=== PATIENT | female | born 1965 | race African-American/Black ===

== ENCOUNTER 2016-08-21 16:38 | Inpatient (IN) | payer MEDICARE, OTHER ==
--- NOTE | ~2016-08-21 | PN ---
Unit #: [id number] #: [id number] Patient: KATERIN FOX [id number] [facility] [address] [place] [address] [id number] MR#: [id number] NAME: KATERIN FOX ROOM: [facility] Age: 51 Sex: F Admission Date: 08/21/2016 : 1965 Attending Physician: Suresh Green M.D. Admitting Physician: Suresh Green M.D. Primary Care Physician: Primary Care Physician Anay BOSWELL NOTES DATE OF SERVICE: 08/24/2016 SUBJECTIVE Ms. Fox is a 51-year-old female, who was seen today and chart was reviewed and the case was discussed with the staff. She remains depressed, anxious, and withdrawn and reports not feeling good and that she needs help and that she has been having suicidal ideations and auditory hallucinations. Meanwhile, she has been taking the medications and tolerating them fairly well, though has not shown a therapeutic response. MENTAL STATUS EXAMINATION Middle-aged female, who was casually dressed with fair personal hygiene, appears to be in no acute distress or discomfort. She was awake and alert with impaired attention and concentration. Her mood was anxious with a congruent affect. She denies any suicidal or homicidal ideation. Her insight and judgment remain slightly impaired. TREATMENT PLAN 1. We will continue her on her current treatment protocol. We will monitor her response and make further adjustments as needed. 2. We will continue to follow up. Dictated by... Raz Johnson/rita TD: 08/25/2016 18:12 JOB #: [id number] [facility] PROGRESS NOTES Page 1 of 1 X Suresh Green MD X PROGRESS NOTE
--- NOTE | ~2016-08-21 | PN ---
Unit #: [id number] #: [id number] Patient: KATERIN FOX [id number] [facility] [address] [place] [address] [id number] MR#: [id number] NAME: KATERIN FOX ROOM: [facility] Age: 51 Sex: F Admission Date: 08/21/2016 : 1965 Attending Physician: Suresh Green M.D. Admitting Physician: Suresh Green M.D. Primary Care Physician: Primary Care Physician Anay REZA PROGRESS NOTES DATE August 31, 2016 DISCUSSION Ms. Fox is a 51-year-old female, who was seen today and chart was reviewed and the case was discussed with the staff. She appears to be doing much better and has been calm and cooperative with the treatment recommendations. She has been compliant with the treatment recommendations and some improvement in her depressive symptoms. She has been taking the medications and tolerating them fairly well. MENTAL STATUS EXAMINATION Middle-aged female, who was casually dressed with fair personal hygiene and appears to be in no acute distress or discomfort. She was awake and alert on interaction with intact orientation. Her mood is anxious and depressed with a congruent affect. The patient denies any suicidal or homicidal ideations. Her insight and judgment remain slightly impaired. TREATMENT PLAN 1. We will continue her on her current treatment protocol, and will monitor her response to the medications, and make further adjustments as needed. 2. We will continue to followup. Dictated by... Raz Johnson/yeni TD: 09/01/2016 10:38 JOB #: [id number] Unit #: [id number] #: [id number] Patient: KATERIN FOX PROGRESS NOTES Page 1 of 1 X Suresh Green MD PROGRESS NOTE
--- NOTE | ~2016-08-21 | PN ---
Unit #: [id number] #: [id number] Patient: KATERIN FOX [id number] [facility] [address] [place] [address] [id number] MR#: [id number] NAME: KATERIN FOX ROOM: [facility] Age: 51 Sex: F Admission Date: 08/21/2016 : 1965 Attending Physician: Suresh Green M.D. Admitting Physician: Suresh Green M.D. Primary Care Physician: Primary Care Physician Anay BOSWELL NOTES DATE August 23, 2016 DISCUSSION Ms. Fox is a 51-year-old female, who was seen today and chart was reviewed and the case was discussed with the staff. She has been anxious, withdrawn, and has been reporting persistent depression and anxiety, auditory hallucinations and suicidal ideations, and as such has been given some p.r.n. medications. MENTAL STATUS EXAMINATION Middle-aged female, who was casually dressed with fair personal hygiene and appears to be in no acute distress or discomfort. The patient was awake and alert on interaction with intact orientation. Her mood was anxious with a congruent affect. She reports having suicidal ideations and auditory hallucinations. Her insight and judgment remain slightly impaired. TREATMENT PLAN 1. We will continue her on her current medications and precautions, and will start p.r.n. Zyprexa. 2. We will continue to followup. Dictated by... Raz Johnson/yeni TD: 08/25/2016 05:13 JOB #: [id number] Unit #: [id number] #: [id number] Patient: KATERIN FOX PROGRESS NOTES Page 1 of 1 X Suresh Green MD PROGRESS NOTE
--- NOTE | ~2016-08-21 | PN ---
Unit #: [id number] #: [id number] Patient: KATERIN FOX [id number] [facility] [address] [place] [address] [id number] I MR#: [id number] NAME: KATERIN FOX ROOM: [facility] Age: 51 Sex: F Admission Date: 08/21/2016 : 1965 Attending Physician: Suresh Green M.D. Admitting Physician: Suresh Green M.D. Primary Care Physician: Primary Care Physician Anay BOSWELL NOTES DATE 08/27/2016 DISCUSSION Ms. Fox is a 51-year-old female who was seen today and chart was reviewed and case was discussed with the staff. She has been anxious, withdrawn and rather seclusive to herself. Meanwhile, she has been cooperative with treatment recommendations. She has been taking the medications and tolerating them fairly well with no reported side effects. MENTAL STATUS EXAMINATION Middle-aged female who was casually dressed with fair personal hygiene, appears to be in no acute distress or discomfort. She was awake and alert on interaction with intact orientation. Her mood was anxious with congruent affect. She denies any suicidal or homicidal ideations. Also, denies any auditory or visual hallucinations. Her insight and judgement remains slightly impaired. TREATMENT PLAN 1. We will continue her on her current medications and treatment protocol. We will monitor her response and make further adjustments as needed. 2. We will continue to follow up. Dictated by... Raz Johnson/geovany TD: 08/28/2016 01:45 JOB #: [id number] Unit #: [id number] #: [id number] Patient: KATERIN FOX PROGRESS NOTES Page 1 of 1 X Suresh Green MD PROGRESS NOTE
--- NOTE | ~2016-08-21 | PN ---
Unit #: [id number] #: [id number] Patient: KATERIN FOX [id number] [facility] [address] [place] [address] [id number] I MR#: [id number] NAME: KATERIN FOX ROOM: [facility] Age: 51 Sex: F Admission Date: 08/21/2016 : 1965 Attending Physician: Suresh Green M.D. Admitting Physician: Suresh Green M.D. Primary Care Physician: Primary Care Physician Anay REZA PROGRESS NOTES DATE OF SERVICE: 08/25/2016 SUBJECTIVE Ms. Fox is a 51-year-old female, who was seen today and chart was reviewed and case was discussed with the staff. She has been anxious, withdrawn, depressed, and seclusive to herself. She reports persistent anxiety and depressive symptoms and feelings of hopelessness and suicidal ideation. Meanwhile, she has been taking medications including Risperdal which was just initiated yesterday and has been tolerating this. MENTAL STATUS EXAMINATION Middle-aged female who was casually dressed with fair personal hygiene and appears to be in no acute distress or discomfort. She was awake and alert with impaired attention and concentration. Her mood was anxious with a congruent affect. She denies suicidal or homicidal ideations. Her insight and judgment remain slightly impaired. TREATMENT PLAN We will continue on her current treatment protocol. We will monitor her response to medications and make further adjustments as needed. Dictated by... Raz Johnson/rita TD: 08/26/2016 07:31 JOB #: [id number] [facility] PROGRESS NOTES Page 1 of 1 X Suresh Green MD PROGRESS NOTE
--- NOTE | ~2016-08-21 | CO ---
Unit #: [id number] #: [id number] Patient: ILENE VILLEDA [id number] [place] [address] [id number] I MR#: [id number] NAME: ILENE VILLEDA ROOM: [facility]5 Age: 51 Sex: F Admission Date: 08/21/2016 : 1965 Attending Physician: Suresh Green M.D. Primary Care Physician: Primary Care Physician No Consultation Date: 08/22/2016 CONSULTATION REPORT Ilene is a 51-year-old with diabetes mellitus, type 2, insulin-dependent. We were asked to review her insulins and blood sugars. These were reviewed and appropriate orders were written. Please see MAR and nursing notes and doctor's orders for details. Dictated by... Iveth Durant P.A.-C. for Raz Parra/rita TD: 09/03/2016 23:13 JOB #: [id number] CONSULTATION REPORT Page 1 of 1 X Iveth Durant CONSULTATION REPORT
--- NOTE | ~2016-08-21 | HP ---
Unit #: [id number] #: [id number] Patient: ILENE VILLEDA [id number] [place] [address] [id number] I MR#: [id number] NAME: ILENE VILLEDA ROOM: P255 Age: 51 Sex: F Admission Date: 08/21/2016 : 1965 Attending Physician: Suresh Green M.D. Admitting Physician: Suresh Green M.D. Primary Care Physician: Primary Care Physician No HISTORY AND PHYSICAL HISTORY OF PRESENT ILLNESS Ilene is a 51 year old admitted to [address] [place] [address] with depression and verbalizing wanting to hurt herself. PAST MEDICAL HISTORY 1. Diabetes mellitus, insulin-dependent. 2. Hyperlipidemia. 3. GERD. 4. Coronary artery disease. a. Angioplasty with stents. b. Three vessel CABG, 01/2016. PAST SURGICAL HISTORY As above. ALLERGIES Sulfa, Tylenol, hydrocodone. SOCIAL HISTORY Smokes 1/2 pack per day. Drinks alcohol on occasion. Admits to smoking marijuana daily and cocaine frequently. FAMILY HISTORY Medically noncontributory. REVIEW OF SYSTEMS CONSTITUTIONAL: No fever or chills. HEENT: Denies any sore throat, ear pain or runny nose. CARDIOVASCULAR: Denies chest pain, irregular heart rhythm or palpitations. CHEST: Denies shortness of breath or cough. No hemoptysis. GASTROINTESTINAL: Denies nausea, vomiting, diarrhea or chronic constipation. ENDOCRINE: Denies history of increased thirst or urination. No recent significant weight loss or gain. GENITOURINARY: Denies dysuria, frequency, or hematuria. SKIN: Denies any rashes. HEMATOLOGIC: Denies history of increased bleeding or bruising. MUSCULOSKELETAL: Denies any hot, swollen joints. No generalized muscle pain. NEUROLOGIC: Denies problems with vision or speech. No frequent, severe headaches. No numbness, tingling or weakness in any extremities. Denies loss of bladder or bowel control. Unit #: [id number] #: [id number] Patient: ILENE VILLEDA CURRENT MEDICATIONS 1. Lexapro 20 mg q.a.m. 2. Lipitor 80 mg q.h.s. 3. NovoLog per sliding scale. 4. Protonix 40 mg b.i.d. 5. Levemir 25 units b.i.d. 6. Hydralazine 25 mg t.i.d. 7. Neurontin 900 mg t.i.d. 8. Plavix 75 mg daily. 9. Coreg 12.5 mg b.i.d. 10. Bumex 1 mg b.i.d. 11. Aspirin 81 mg daily. 12. Milk of Magnesia p.r.n. 13. Maalox p.r.n. PHYSICAL EXAMINATION GENERAL: Alert, thin, no apparent distress. VITAL SIGNS: Blood pressure 142/98, heart rate 80, respirations 16, temperature 98.6. WEIGHT: 180. HEIGHT: 5 feet 6 inches. SKIN: Warm and dry without rash or lesion. HEENT: Normocephalic. TMs not viewed. Oral and nasal passages clear. Conjunctivae clear. PERRLA. EOMs intact. NECK: Supple without lymphadenopathy or thyromegaly. HEART: Regular rate and rhythm without murmur. LUNGS: Clear. ABDOMEN: Soft, nontender. : Not done. EXTREMITIES: No evidence of cyanosis, clubbing or edema. Moves all without focal deficit. NEUROLOGICAL: Grossly within normal limits. Cranial Nerves: II: Visual snow are intact. III, IV AND : Extraocular movements are intact. Pupils are equal, round and reactive to light. V: Facial sensation is grossly normal. VII: Facial movements and expression are normal. VIII: Auditory acuity grossly intact. IX, X: Uvula is midline. Phonation is normal. XI: Patient shrugs shoulders and turns head normally. XII: Tongue protrudes in the midline. Sensory and Motor Function: Sensory and motor sensation is grossly normal. Motor: moves all extremities well. Coordination: Gait is normal. Deep Tendon Reflexes: Intact. IMPRESSION Psychiatric admission. RECOMMENDATIONS PSYCHIATRIC: Per psychiatrist. MEDICAL: See no contraindications to participate in facility's activities. MEDICAL PROGNOSIS Good. MEDICAL CONDITION Stable. Unit #: [id number] #: [id number] Patient: ILENE VILLEDA Dictated by... Iveth Durant P.A.-C. for Raz Parra/dong TD: 08/22/2016 20:07 JOB #: [id number] HISTORY AND PHYSICAL Page 1 of 1 X Iveth Durant X HISTORY AND PHYSICAL
--- NOTE | ~2016-08-21 | DS ---
Unit #: [id number] #: [id number] Patient: KATERIN FOX [id number] [facility] [address] [place] [address] [id number] MR#: [id number] NAME: KATERIN FOX ROOM: P255 Age: 51 Sex: F Admission Date: 08/21/2016 : 1965 Discharge Date: Attending Physician: Suresh Green M.D. DISCHARGE SUMMARY IDENTIFYING DATA Ms. Fox is a 51-year-old female, who is a resident of [place], [place], and was transferred to us from [facility] Emergency Room. DISCHARGE DIAGNOSES Psychiatric: Major depressive disorder, recurrent, moderate, without psychotic features. Medical: Coronary artery disease, diabetes mellitus, status post coronary artery bypass grafting. Stressors: Moderate psychosocial stressors. HISTORY OF PRESENT ILLNESS Please see initial psychiatric evaluation for details. PAST PSYCHIATRIC HISTORY Please see initial psychiatric evaluation for details. PAST MEDICAL HISTORY Please see initial psychiatric evaluation for details. HOSPITAL COURSE The patient [facility] and was oriented to the hospital environment. Routine p.r.n. medications were initiated, and she was started back on her home medications and medications were adjusted and she was closely monitored. She was taking the medications regularly and was tolerating them fairly well and was seen to be exhibiting some persistent depression and anxiety and as such, Risperdal was initiated and then titrated with good tolerability and therapeutic response. Followed by which, it was decided that she will be discharged home and will continue treatment on an outpatient basis. DISCHARGE MEDICATIONS Lexapro 20 mg a day for depression and Risperdal 1 mg b.i.d. DISCHARGE CONDITION Stable. PROGNOSIS Fair. Dictated by... Unit #: [id number] #: [id number] Patient: KATERIN FOX Suresh Green M.D. IAA/modl TD: 09/01/2016 07:08 JOB #: [id number] DISCHARGE SUMMARY Page 1 of 1 X Suresh Green MD X DISCHARGE SUMMARY
--- NOTE | ~2016-08-21 | PA ---
Unit #: [id number] #: [id number] Patient: KATERIN FOX [id number] [facility] [address] [place] [address] [id number] I MR#: [id number] NAME: KATERIN FOX ROOM: P255 Age: 51 Sex: F Admission Date: 08/21/2016 : 1965 Date of Assessment: 08/22/2016 Attending Physician: Suresh Green M.D. Admitting Physician: Suresh Green M.D. Primary Care Physician: Primary Care Physician No PSYCHIATRIC ASSESSMENT IDENTIFYING DATA Ms. Fox is a 51-year-old single female, who is a resident of [place], [place], and was self-referred to the hospital as a transfer from [facility] Emergency Room. CHIEF COMPLAINT "I'm struggling with depression". HISTORY OF PRESENT ILLNESS Ms. Fox is a 51-year-old female, who reports that she had a triple bypass in January and that she has been struggling with being depressed ever since and reports that she has been sitting at home, crying for the past two months. She reported that Day was especially hard for her due to her parents and grandparents, both having and that she misses them and feels all alone. She reported that she is also concerned about her 25 year old son because he is on heroin and finding dates on [employer] and she is concerned that he will end up and reports that her overall home situation is overwhelming and reports falling in areas of her home and that she has no hot water and reports that her house has bedbugs and ants, and she is unable to keep it clean even when she tries and reports that she has boyfriend, who lives with her, that he is usually supportive but when he starts drinking, he will do things such as stealing a debit card and finances are struggle for her. The patient reports that she has not smoked crack cocaine in 2 or 3 years and due to feeling overwhelmed, she ended up smoking which made everything seem worse. She reports that she is frustrated with herself and doing so that she wishes "we would just let her go." She stated that she feels things will be better if she would be in heaven with her family members there as "there will be no suffering." She does report increasing depression, anxiety, irritability, restlessness, feelings of hopelessness and helplessness, and suicidal ideations, and as such, recommendation for inpatient level of care for safety and stabilization was made, and the patient was transferred to us. SUBSTANCE ABUSE HISTORY The patient reports history of alcohol, cannabis, and cocaine abuse and reports that she has been smoking cannabis quite regularly and ended up relapsing on cocaine yesterday as well. PAST PSYCHIATRIC HISTORY The patient has not had any prior inpatient psychiatric hospitalization and currently, she does not appear to be actively involved in any treatment program. Unit #: [id number] #: [id number] Patient: KATERIN FOX PAST MEDICAL HISTORY The patient's medical history is significant for coronary artery disease, status post coronary artery bypass grafting and diabetes mellitus. ALLERGIES Tylenol, [place] and sulfa. PERSONAL AND SOCIAL HISTORY A 51-year-old female, who reports that she is single and lives at home and her boyfriend stays with her some time and she is unemployed and has poor social support system. MENTAL STATUS EXAMINATION Middle-aged female, who was casually dressed with fair personal hygiene, appears to be in no acute distress or discomfort. She was awake and alert on interaction with intact orientation to time, place, and person. Her mood was anxious and depressed with a congruent affect. Her speech was slow and restricted in content. The patient reports having suicidal ideations, but denies any homicidal ideations, and also denies any auditory or visual hallucinations. Her insight and judgment remain significantly impaired. DIAGNOSTIC IMPRESSION Psychiatric: Major depressive disorder, recurrent, moderate, without psychotic features. Medical: Coronary artery disease, diabetes mellitus, status post coronary artery bypass grafting. Stressors: Moderate psychosocial stressors. TREATMENT PLAN 1. The patient has presented with history of mood disorder and substance abuse and has been decompensating and will need inpatient hospitalization for safety and stabilization. We will start her back on her home medications. We will adjust the medications and monitor response. 2. Supportive therapy was provided to the patient. 3. Safe, structured, and nourishing environment will be provided. ESTIMATED LENGTH OF STAY 5 to 7 days. ABILITY TO HELP SELF Limited. WILLINGNESS TO HELP SELF The patient appears to be willing to help self. STRENGTHS 1. Communicative. 2. Cooperative. PROBLEMS 1. Chronic dysphoric symptoms. 2. Chronic chemical dependency. 3. Poor social support system. DISCHARGE CRITERIA This will be contingent upon the patient's ability to show resolution of her depression and anxiety and her ability to stay safe to himself, Unit #: [id number] #: [id number] Patient: KATERIN FOX particularly after discharge from the hospital. Dictated by... Raz Johnson/rita TD: 08/22/2016 07:14 JOB #: [id number] PSYCHIATRIC ASSESSMENT Page 1 of 1 X Suresh Green MD X PSYCHIATRIC ASSESSMENT
--- NOTE | ~2016-08-21 | PN ---
Unit #: [id number] #: [id number] Patient: KATERIN FOX [id number] [facility] [address] [place] [address] [id number] I MR#: [id number] NAME: KATERIN FOX ROOM: [facility] Age: 51 Sex: F Admission Date: 08/21/2016 : 1965 Attending Physician: Suresh Green M.D. Admitting Physician: Suresh Green M.D. Primary Care Physician: Primary Care Physician Anay BOSWELL NOTES DATE 08/28/2016 DISCUSSION Ms. Fox is a 51-year-old female who was seen today and chart was reviewed and case was discussed with the staff. She has been anxious, withdrawn, rather seclusive to herself. Meanwhile, she has been cooperative with treatment recommendations and has been taking medications and tolerating them fairly well with no reported side effects. MENTAL STATUS EXAMINATION Middle-aged female who was casually dressed with fair personal hygiene and appears to be in no acute distress or discomfort. She was awake and alert on interaction with intact orientation. Her mood was anxious with congruent affect. She denies any suicidal or homicidal ideation. Her insight and judgement remains slightly impaired. TREATMENT PLAN 1. Will continue on current treatment protocol and will monitor her response to the medications and make ____ as needed. 2. Will continue to follow up. Dictated by... Suresh Green M.D. IAA/dong TD: 08/28/2016 22:56 JOB #: [id number] Unit #: [id number] #: [id number] Patient: KATERIN FOX PROGRESS NOTES Page 1 of 1 X Suresh Green MD PROGRESS NOTE
--- NOTE | ~2016-08-21 | PN ---
Unit #: [id number] #: [id number] Patient: KATERIN FOX [id number] [facility] [address] [place] [address] [id number] MR#: [id number] NAME: KATERIN FOX ROOM: [facility] Age: 51 Sex: F Admission Date: 08/21/2016 : 1965 Attending Physician: Suresh Green M.D. Admitting Physician: Suresh Green M.D. Primary Care Physician: Primary Care Physician Anay BOSWELL NOTES DATE 08/26/2016 DISCUSSION Ms. Fox is a 51-year-old female who was seen today and chart was reviewed and case was discussed with the staff. She has been anxious, withdrawn though has not shown any agitation, irritability and has been showing some improvement in her mood and daily functioning as she has been taking the medications and tolerating them fairly well with no reported side effects. MENTAL STATUS EXAMINATION Middle-aged female who was casually dressed with fair personal hygiene, appears to be in no acute distress or discomfort. She was awake and alert on interaction with intact orientation. Her mood was anxious with congruent affect. She denies any suicidal or homicidal ideations. Also, denies any auditory or visual hallucinations. Her insight and judgement remains slightly impaired. TREATMENT PLAN 1. We will continue her on her current medications and treatment protocol. We will monitor her response and make further adjustments as needed. 2. We will continue to follow up. Dictated by... Raz Johnson/geovany TD: 08/27/2016 03:57 JOB #: [id number] Unit #: [id number] #: [id number] Patient: KATERIN FOX PROGRESS NOTES Page 1 of 1 X Suresh Green MD PROGRESS NOTE
--- NOTE | ~2016-08-21 | PN ---
Unit #: [id number] #: [id number] Patient: KATERIN FOX [id number] [facility] [address] [place] [address] [id number] MR#: [id number] NAME: KATERIN FXO ROOM: [facility] Age: 51 Sex: F Admission Date: 08/21/2016 : 1965 Attending Physician: Suresh Green M.D. Admitting Physician: Suresh Green M.D. Primary Care Physician: Primary Care Physician Anay BOSWELL NOTES DATE OF SERVICE: 08/30/2016 SUBJECTIVE Ms. Fox is a 51-year-old female, who was seen today and chart was reviewed and case was discussed with the staff. She has been anxious, withdrawn, and rather seclusive to herself. The patient has been cooperative with treatment recommendations. Meanwhile, she has been taking medications with no reported side effects. MENTAL STATUS EXAMINATION Middle-aged female, who was casually dressed with fair personal hygiene, appears to be in no acute distress or discomfort. She was awake and alert with impaired attention and concentration. Her mood was anxious with a congruent affect. She denies any suicidal or homicidal ideation. Her insight and judgment remain slightly impaired. TREATMENT PLAN 1. We will and will monitor her response to the medications and make further adjustments as needed. 2. We will continue to follow up. Dictated by... Raz Johnson/rita TD: 09/01/2016 09:57 JOB #: [id number] [facility] PROGRESS NOTES Page 1 of 1 X Suresh Green MD X PROGRESS NOTE
--- NOTE | ~2016-08-21 | PN ---
Unit #: [id number] #: [id number] Patient: KATERIN FOX [id number] [facility] [address] [place] [address] [id number] MR#: [id number] NAME: KATERIN FOX ROOM: [facility] Age: 51 Sex: F Admission Date: 08/21/2016 : 1965 Attending Physician: Suresh Green M.D. Admitting Physician: Suresh Green M.D. Primary Care Physician: Primary Care Physician Anay BOSWELL NOTES DATE 08/29/2016 DISCUSSION Ms. Fox is a 51-year-old female who was seen today and chart was reviewed and case was discussed with the staff. She has been anxious, withdrawn and reports mood swings, irritability, anxiety and panic mode as well as feelings of hopelessness and helplessness and suicidal ideation and some auditory hallucinations though she has been taking medications, she has not been able to show a therapeutic response. MENTAL STATUS EXAMINATION Middle-aged female who was casually dressed with fair personal hygiene and appears to be in no acute distress or discomfort. She was awake and alert with impaired attention and concentration. Her mood was anxious with congruent affect. She denies any suicidal or homicidal ideation. Her insight and judgement slightly impaired. TREATMENT PLAN 1. Will monitor her response to medications and make further adjustments as needed. 2. Will continue to follow up. Dictated by... Raz Johnson/dong TD: 08/29/2016 22:25 JOB #: [id number] Unit #: [id number] #: [id number] Patient: KATERIN FOX PROGRESS NOTES Page 1 of 1 X Suresh Green MD PROGRESS NOTE
--- NOTE | ~2016-08-21 | CO ---
Unit #: [id number] #: [id number] Patient: KATERIN VILLEDA [id number] [facility] [address] [place] [address] [id number] MR#: [id number] NAME: KATERIN VILLEDA ROOM: [facility] Age: 51 Sex: F Admission Date: 08/21/2016 : 1965 Attending Physician: Suresh Green M.D. Primary Care Physician: Primary Care Physician No Consultation Date: 08/23/2016 CONSULTATION REPORT ORDERING PROVIDER Dr. Green. REASON FOR CONSULT Diabetes, to review sliding scale insulin. SUBJECTIVE The patient reports that she is not always compliant with medications at home; however, her regimen is supposed to be Levemir 25 units b.i.d. and NovoLog sliding scale with meals. This pattern has been continued on admission and the patient reports that she thinks everything is going well. OBJECTIVE The patient's blood sugars have ranged between 138 and a high of 481, which was on admission. It is unclear if she had taken her insulin prior to that due to noncompliance; however, since admission her highest blood sugar was 352. ASSESSMENT Diabetes. PLAN Plan is to continue the patient on her current medications of Levemir 25 units b.i.d. and NovoLog sliding scale with meals. Dictated by... Merari Luevano A.P.R.N. for Raz Parra/rita TD: 08/25/2016 00:43 JOB #: [id number] Unit #: [id number] #: [id number] Patient: KATERIN VILLEDA CONSULTATION REPORT Page 1 of 1 X MERARI LUEVANO APRN CONSULTATION REPORT
[~2016-08-21 16:38] MED LIST: COREG PO; LISINOPRIL PO; PLAVIX PO; ZOCOR PO
== END 2016-09-01 10:40 | disposition home or self-care (01) | DRG 885 ==
LOC: P2L 21:39
DX: F33.1 Major depressive disorder, recurrent, moderate (principal); E11.9 Type 2 diabetes mellitus without complications; I25.10 Atherosclerotic heart disease of native coronary artery without angina pectoris; Z95.1 Presence of aortocoronary bypass graft; Z79.4 Long term (current) use of insulin; E78.5 Hyperlipidemia, unspecified; K21.9 Gastro-esophageal reflux disease without esophagitis; Z95.5 Presence of coronary angioplasty implant and graft; Z88.2 Allergy status to sulfonamides; F17.210 Nicotine dependence, cigarettes, uncomplicated; Z79.82 Long term (current) use of aspirin
CPT/HCPCS: 82947